=== PATIENT | male | born 1995 | race Caucasian/White ===

== ENCOUNTER 2020-12-20 18:49 | Emergency (ER) | payer OTHER ==
[~2020-12-20] VITALS: Ht 172.7 cm; Wt 89.7 kg
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
[2020-12-20] MEDS ORDERED: ONDA4TAB6 PO (21:45)
[2020-12-20] MEDS ORDERED: CYCL5TAB PO (21:45)
[2020-12-20 22:17] VITALS: BP 131/72
== END 2020-12-20 22:19 | disposition home or self-care (01) ==
LOC: M ED 18:49
DX: S13.4XXA Sprain of ligaments of cervical spine, initial encounter (principal); S06.0X0A Concussion without loss of consciousness, initial encounter; W22.09XA Striking against other stationary object, initial encounter; V49.40XA Driver injured in collision with unspecified motor vehicles in traffic accident, initial encounter; Y92.9 Unspecified place or not applicable; Y93.9 Activity, unspecified; Y99.9 Unspecified external cause status; Z79.899 Other long term (current) drug therapy; Z88.0 Allergy status to penicillin; Z88.1 Allergy status to other antibiotic agents; Z88.2 Allergy status to sulfonamides